=== PATIENT | female | born 1985 | race Asian ===

== ENCOUNTER 2016-07-13 18:10 | Emergency (ER) | payer BC ==
[2016-07-13 20:05] LABS: Basophils % (Auto) 0.9 % (0.0-1.8); Eosinophils % (Auto) 11.5 % (0.0-4.3); Hematocrit 39.4 % (30.3-42.9); Hemoglobin 12.1 gm/dl (10.1-14.3); Mean Corpuscular HGB Conc 31 % (30-34); Platelet Count 218 K/mm3 (140-440); Red Blood Count 6.63 M/mm3 (3.65-5.03); Red Cell Distribution Width 16.8 % (13.2-15.2); White Blood Count 8.4 K/mm3 (4.5-11.0)
[2016-07-13 20:16] LABS: Mean Corpuscular Hemoglobin 18 pg (28-32); Mean Corpuscular Volume 59 fl (79-97)
[2016-07-13 20:25] LABS: Anion Gap 19 mmol/L; BUN/Creatinine Ratio 13.33; Blood Urea Nitrogen 8 mg/dL (7-17); Calcium 9.7 mg/dL (8.4-10.2); Carbon Dioxide 25 mmol/L (22-30); Chloride 102.1 mmol/L (98-107); Glucose 103 mg/dL (65-100); Sodium 142 mmol/L (137-145)
[2016-07-13] MEDS ORDERED: DELTASONE PO ONE (21:57)
[2016-07-13] MEDS ORDERED: DUONEB 0.5 MG-3 MG/3 ML SOLN IH ONE (21:57)
--- NOTE | 2016-07-13 21:57 | Emergency Department Report ---
HPI - General Chief Complaint: Upper Respiratory Infection Time Seen by Provider: 07/13/16 21:51 - HPI HPI: Patient here reports that she's been wheezing 2 days. She denies any fever, difficulty breathing. She reports chest tightness and occasional coughing. Chest that this is 4/10. Patient does not have any cardiovascular rest. Patient reported that she was treated at urgent care for bronchitis 3 weeks ago and he put her on Zithromax and Medrol Dosepak. She did not get a inhaler. She says she never got better. Patient says she has an appointment to see her primary care physician but the wheezing is increasing and decided to coming to the emergency room. Denies any nausea vomiting or diarrhea. Denies any abdominal pain. She had bronchitis in the past. Has not seen a pulmonary doctor and has not been diagnosed with asthma. ED Past Medical Hx - Past Medical History Previous Medical History?: Yes Additional medical history: Bronchitis - Surgical History Past Surgical History?: No - Family History Family history: hypertension - Social History Smoking Status: Never Smoker Substance Use Type: None - Medications Home Medications: Home Medications Medication Instructions Recorded Confirmed Last Taken Type ALBUTEROL Inhaler [ProAir HFA 2 puff IH QID PRN #1 inhalation 07/13/16 Unknown Rx Inhaler] Doxycycline [Vibramycin CAP] 100 mg PO Q12HR #20 capsule 07/13/16 Unknown Rx predniSONE [Deltasone] 50 mg PO QDAY #5 tab 07/13/16 Unknown Rx ED Review of Systems ROS: Stated complaint: RADHA Other details as noted in HPI Comment: All other systems reviewed and negative Constitutional: denies: chills, fever, weakness ENT: denies: ear pain, throat pain, congestion Respiratory: cough, wheezing. denies: SOB with exertion, SOB at rest, stridor Cardiovascular: chest pain (chest tightness). denies: palpitations, edema, syncope Gastrointestinal: denies: abdominal pain, nausea, vomiting Musculoskeletal: denies: back pain, joint swelling, arthralgia, myalgia Skin: denies: rash Neurological: denies: headache Physical Exam - Physical Exam Vital Signs: Vital Signs 07/13/16 19:24 Temperature 98.5 F Pulse Rate 87 Respiratory 16 Rate Blood Pressure 128/95 [Right] O2 Sat by Pulse 96 Oximetry Vital Signs 07/13/16 07/13/16 07/13/16 19:24 22:06 22:30 Temperature 98.5 F Pulse Rate 87 Pulse Rate [ 85 80 Posterior Bilateral] Respiratory 16 Rate Respiratory 18 18 Rate [Posterior Bilateral] Blood Pressure 128/95 [Right] O2 Sat by Pulse 96 Oximetry General: This is a 31-year-old female well-nourished well-developed nontoxic in appearance. Physical Exam: Head: Normocephalic atraumatic Mouth: Moist, no pharyngeal exudate or erythema. Uvula is midline and oral airway is patent. No facial swelling. No peritonsillar abscesses. Nose: Congested with erythema to mucosa. Clear Drainage. Maxillary and frontal sinuses nontender to palpate Neck: Supple, no C-spine tenderness, no tracheal deviation. Nontender to palpate. no adenopathy Ears: Bilateral TMs congested without erythema. Bilateral EAC without any redness swelling or drainage. Abdomen: Soft, nontender to palpate in all quadrants, normal bowel sounds in all quadrant and negative CVA tenderness bilaterally. Eyes: Bilateral pupils equal and reactive to light, bilateral EOM intact. Bilateral sclera and conjunctiva without injection. Normal accommodation. No Lungs: Audible wheezing expiratory and inspiratory to lung carrion. No use of accessory muscle and normal work of breathing. Dry cough no rhonchi wheezes or rales.. extremity; No CCE. +2 pulses. No neurovascular compromise Cardiovascular: S1-S2, regular rate rhythm. No murmurs. Skin: clean Dry and intact no rash no lesions Psych: Normal mood and behavior ED Course Vital Signs 07/13/16 19:24 Temperature 98.5 F Pulse Rate 87 Respiratory 16 Rate Blood Pressure 128/95 [Right] O2 Sat by Pulse 96 Oximetry Vital Signs 07/13/16 07/13/16 07/13/16 19:24 22:06 22:30 Temperature 98.5 F Pulse Rate 87 Pulse Rate [ 85 80 Posterior Bilateral] Respiratory 16 Rate Respiratory 18 18 Rate [Posterior Bilateral] Blood Pressure 128/95 [Right] O2 Sat by Pulse 96 Oximetry Vital Signs 07/13/16 07/13/16 07/13/16 19:24 22:06 22:30 Temperature 98.5 F Pulse Rate 87 Pulse Rate [ 85 80 Posterior Bilateral] Respiratory 16 Rate Respiratory 18 18 Rate [Posterior Bilateral] Blood Pressure 128/95 [Right] O2 Sat by Pulse 96 Oximetry 07/13/16 07/14/16 23:05 00:03 Temperature Pulse Rate 112 H Pulse Rate [ Posterior Bilateral] Respiratory 17 Rate Respiratory Rate [Posterior Bilateral] Blood Pressure 110/74 [Right] O2 Sat by Pulse 98 96 Oximetry - Reevaluation(s) Reevaluation #1: 07/13/16 22:43 Patient given DuoNeb 2 nebulizers in emergency room along with diagnosis a 60 mg by mouth. Upon reevaluation patient with scattered wheezing to upper lung carrion and says she is feeling much better. Reevaluation #2: 07/13/16 22:[address] Downing patient to receive additional 5 mg of albuterol with 0.5 mg of Atrovent nebulizer for scattered wheezing to upper lung carrion. Awaiting respiratory treatment ED Medical Decision Making - Lab Data Result diagrams: 07/13/16 19:44 07/13/16 19:44 Lab Results 07/13/16 07/13/16 07/13/16 Range/Units 19:44 19:44 19:44 WBC 8.4 (4.5-11.0) K/mm3 RBC 6.63 H (3.65-5.03) M/mm3 Hgb 12.1 (10.1-14.3) gm/dl Hct 39.4 (30.3-42.9) % MCV 59 L (79-97) fl MCH 18 L (28-32) pg MCHC 31 (30-34) % RDW 16.8 H (13.2-15.2) % Plt Count 218 (140-440) K/mm3 Lymph % (Auto) 18.7 (13.4-35.0) % Canyon % (Auto) 5.2 (0.0-7.3) % Eos % (Auto) 11.5 H (0.0-4.3) % Baso % (Auto) 0.9 (0.0-1.8) % Lymph # 1.6 (1.2-5.4) K/mm3 Canyon # 0.4 (0.0-0.8) K/mm3 Eos # 1.0 H (0.0-0.4) K/mm3 Baso # 0.1 (0.0-0.1) K/mm3 Seg Neutrophils % 63.7 (40.0-70.0) % Seg Neutrophils # 5.3 (1.8-7.7) K/mm3 VBG pH (7.320-7.420) Sodium 142 (137-145) mmol/L Potassium 4.0 (3.6-5.0) mmol/L Chloride 102.1 (98-107) mmol/L Carbon Dioxide 25 (22-30) mmol/L Anion Gap 19 mmol/L BUN 8 (7-17) mg/dL Creatinine 0.6 L (0.7-1.2) mg/dL Estimated GFR > 60 ml/min BUN/Creatinine Ratio 13.33 % Glucose 103 H (65-100) mg/dL Calcium 9.7 (8.4-10.2) mg/dL Troponin T < 0.010 (0.00-0.029) ng/mL HCG, Qual Negative (Negative) 07/13/16 Range/Units 19:44 WBC (4.5-11.0) K/mm3 RBC (3.65-5.03) M/mm3 Hgb (10.1-14.3) gm/dl Hct (30.3-42.9) % MCV (79-97) fl MCH (28-32) pg MCHC (30-34) % RDW (13.2-15.2) % Plt Count (140-440) K/mm3 Lymph % (Auto) (13.4-35.0) % Canyon % (Auto) (0.0-7.3) % Eos % (Auto) (0.0-4.3) % Baso % (Auto) (0.0-1.8) % Lymph # (1.2-5.4) K/mm3 [place] # (0.0-0.8) K/mm3 Eos # (0.0-0.4) K/mm3 Baso # (0.0-0.1) K/mm3 Seg Neutrophils % (40.0-70.0) % Seg Neutrophils # (1.8-7.7) K/mm3 VBG pH 7.306 L (7.320-7.420) Sodium (137-145) mmol/L Potassium (3.6-5.0) mmol/L Chloride (98-107) mmol/L Carbon Dioxide (22-30) mmol/L Anion Gap mmol/L BUN (7-17) mg/dL Creatinine (0.7-1.2) mg/dL Estimated GFR ml/min BUN/Creatinine Ratio % Glucose (65-100) mg/dL Calcium (8.4-10.2) mg/dL Troponin T (0.00-0.029) ng/mL HCG, Qual (Negative) - EKG Data -: EKG Interpreted by Me (Dr. Willow Muniz) EKG shows normal: sinus rhythm Rate: normal (82 bpm) - EKG Data Interpretation: no acute changes, normal EKG - Radiology Data Radiology results: report reviewed Chest X-ray revealed no acute cardiopulmonary processes - Medical Decision Making ED course: Discussed with patient that her chest x-ray was normal and she has acute bronchitis which she needed to have an inhaler with initial presentation to urgent care. I discussed with her place her on antibiotics since going on for 3 weeks, albuterol inhaler and prednisone and for her to follow up with her primary care in the morning as scheduled. Patient given DuoNeb 2 inhaler along wait Orapred 60 mg by mouth and she says she felt better. Patient is stable and to see her primary care in the morning. Discharged home with prescription for prednisone, doxycycline and albuterol.Low heart risk Score (0- 3 points) Risk of MACE of 0.9-1.7%. Patient had lab work done and work troponin was negative CBC was within normal limits. Venous pH was mildly diminished at 7.306. Patient received an additional 5 mg of albuterol nebulizer with Atrovent 0.5 mg. Her lungs sounds are clear and patient if she is feeling much better and ready to go home. Patient heart rate was 112 due to albuterol treatment. Critical care attestation.: If time is entered above; I have spent that time in minutes in the direct care of this critically ill patient, excluding procedure time. ED Disposition Clinical Impression: Cough Acute bronchitis Qualifiers: Bronchitis organism: unspecified organism Qualified Code(s): J20.9 - Acute bronchitis, unspecified Disposition: DISCHARGED TO HOME OR SELFCARE Is pt being admited?: No Does the pt Need Aspirin: No Condition: Stable Instructions: Acute Bronchitis (ED), Acute Cough (ED) Additional Instructions: Please follow-up with your primary care physician as scheduled in the morning Please albuterol inhaler every 4 hours 3 days then as needed. Prescriptions: ALBUTEROL Inhaler [ProAir HFA Inhaler] 2 puff IH QID PRN #1 inhalation PRN Reason: Wheezing Doxycycline [Vibramycin CAP] 100 mg PO Q12HR #20 capsule predniSONE [Deltasone] 50 mg PO QDAY #5 tab Referrals: HUBER HOLLAND MD [Primary Care Provider] - 07/14/16 YUE KOO MD [Staff Physician] - 3-5 Days Forms: Accompanied Note, Work/School Release Form(ED)
--- NOTE | 2016-07-13 22:23 | XRay Report ---
FINAL REPORT EXAM: XR CHEST ROUTINE 2V HISTORY: Shortness of breath TECHNIQUE: 2 views of the chest. PRIORS: None. FINDINGS: The cardiomediastinal silhouette appears normal. The lungs are clear. The bones and soft tissues are unremarkable. IMPRESSION: No evidence of acute cardiopulmonary disease
[2016-07-13] MEDS ORDERED: ATROVENT IH ONE (22:55)
[2016-07-13] MEDS ORDERED: PROVENTIL IH ONE (22:55)
--- NOTE | 2016-07-13 23:52 | Emergency Department Report ---
Blank Doc - Documentation Documentation: This patient was left to this provider by nurse practitioner Devendra . Patient had just finished her second treatment of albuterol. Patient reports that she feels much better. This provider evaluated and noticed that she still has some expiratory wheeze. Discussed with patient that the other providers place her on doxycycline 100 mg by mouth twice a day, pro-air inhaler when necessary and prednisone when necessary. Instructed patient to shredder picker her pro-air tonight. Patient verbalized understanding. Nurse practitioner Devendra all back to check on her patient.
[2016-07-14 00:05] VITALS: BP 110/74
== END 2016-07-14 00:03 | disposition home or self-care (01) ==
LOC: ED 18:10
DX: J20.9 Acute bronchitis, unspecified (principal)
CPT/HCPCS: 36415; 71020; 80048; 82805; 84484; 84703; 85025; 93005; 93010; 94640; 99284; J7512